=== PATIENT | male | born 1945 | race Caucasian/White ===

== ENCOUNTER 2017-04-14 20:12 | Emergency (ER) | payer MEDICARE ==
[2017-04-14] MEDS ORDERED: SODIUM CHLORIDE 0.9% 2,000 ML IV ONE (21:03)
[2017-04-14 21:20] LABS: Basophils % (A) 0 %; CH 31.4; CHCM 34.9; Eosinophils # (A) 0.1 k/uL (0-0.7); Eosinophils % (A) 0 %; HCT 38.5 % (39.0-53.0); HDW 2.34; Luc # (Auto) 0.15; Luc % (Auto) 1; Lymphocytes # (A) 1.3 k/uL (1.0-4.8); Lymphocytes % (A) 7 %; MCH 32.9 pg (25.0-35.0); MCHC 36.5 g/dL (31.0-37.0); MCV 90.2 fL (80.0-100.0); Mean Platelet Volume 7.7; Monocytes # (A) 0.7 k/uL (0-1.0); Monocytes % (A) 4 %; Neutrophils # (A) 15.6 k/uL (1.3-7.7); Neutrophils % (A) 88 %; RBC 4.27 m/uL (4.30-5.90); RDW 12.8 % (11.5-15.5); WBC 17.8 k/uL (3.8-10.6); WBC (Perox) 16.95
[2017-04-14 21:26] VITALS: RESP 20
[2017-04-14 21:27] LABS: Prothrombin Time 10.5 sec (9.0-12.0)
[2017-04-14 21:33] LABS: Anion Gap 9 mmol/L; Blood Urea Nitrogen 20 mg/dL (9-20); Calcium 9.1 mg/dL (8.4-10.2); Carbon Dioxide 27 mmol/L (22-30); Chloride 105 mmol/L (98-107); Creatine Kinase 102 U/L (55-170); Glucose 107 mg/dL (74-99); Non-African American GFR(MDRD) >60 (>60 ml/min/1.73 sqM); Sodium 141 mmol/L (137-145)
--- NOTE | 2017-04-14 21:41 | ED ---
Wound/Laceration HPI - General Chief Complaint: Wound/Laceration Stated Complaint: Leg Injury Time Seen by Provider: 04/14/17 20:47 Source: patient Mode of arrival: EMS Limitations: physical limitation - History of Present Illness Initial Comments: Patient is 71-year-old male who presents with a chief complaint of a laceration of the left lower extremity. Patient was unloading a tractor off of a truck bed , when the ramp slipped causing the patient and the tractor to fall. Patient fell on his left side and had his left leg trapped underneath the tractor for 45 minutes. Patient sustained a deep laceration to the left lower extremity on the anterior medial aspect. Laceration with is about 2 cm wide in linear, currently depth is unknown. Currently the patient is complaining of a sharp pain that he says is not very intense. Patient is declining pain medications at this time. Patient did not attempt to walk on it. He has not ambulated since the accident. Onset/Timin -: hour(s) Extremity Location: Left: Lower Leg Place: outdoors Context: accidental Associated Symptoms: pain Treatments Prior to Arrival: other (Tourniquet) - Related Data Home Medications Medication Instructions Recorded Confirmed Cyanocobalamin (Vitamin B-12) 1,000 mcg PO DAILY 04/14/17 04/14/17 [Vitamin B-12] L.acidoph,Paracasei, B.lactis 1 cap PO DAILY 04/14/17 04/14/17 [Probiotic] [place]-3 Fatty Acids/Fish Oil [Fish 1 cap PO DAILY 04/14/17 04/14/17 Oil 1,000 mg Softgel] Allergies Allergy/AdvReac Type Severity Reaction Status Date / Time No Known Allergies Allergy Verified 04/14/17 20:27 Review of Systems ROS Statement: Those systems with pertinent positive or pertinent negative responses have been documented in the HPI. Patient denies dizziness, lightheadedness, visual changes, loss of consciousness , chest pain, shortness of breath, nausea, vomiting, abdominal pain, loss of bladder or bowel function, dysuria, constipation, diarrhea ROS Other: All systems not noted in ROS Statement are negative. Past Medical History Past Medical History: No Reported History Past Surgical History: Appendectomy, Hernia Repair Additional Past Surgical History / Comment(s): half of right foot removed. Past Psychological History: No Psychological Hx Reported Smoking Status: Never smoker Past Alcohol Use History: None Reported Past Drug Use History: None Reported General Exam Limitations: physical limitation General appearance: alert, in no apparent distress Head exam: Present: atraumatic, normocephalic Eye exam: Present: normal appearance ENT exam: Present: mucous membranes moist Neck exam: Present: normal inspection Respiratory exam: Present: normal lung sounds bilaterally Cardiovascular Exam: Present: regular rate, normal rhythm GI/Abdominal exam: Present: soft Rectal exam: Present: deferred Extremities exam: Present: calf tenderness, other (Patient has gross deformity of the left lower extremity, there is fullness to the left calf. Patient has a laceration to the anterior medial aspect of the left lower extremity, length is 1 cm, the laceration is linear. Depth at this point is unknown secondary to poorly controlled bleeding. Bleeding appears to be venous. Patient has adequate pulses including DP, PT, popliteal, and femoral.) Back exam: Present: normal inspection Neurological exam: Present: alert, oriented X3 Psychiatric exam: Present: normal affect, normal mood Skin exam: Present: warm, dry, intact, other (Except for examination of left lower extremity, as described above) Course Vital Signs 04/14/17 04/14/17 04/14/17 20:13 21:00 21:15 Temperature 99.2 F Pulse Rate 64 65 69 Respiratory 16 20 20 Rate Blood Pressure 177/98 162/85 162/94 O2 Sat by Pulse 99 97 96 Oximetry 04/14/17 04/14/17 21:27 22:24 Temperature 99.0 F Pulse Rate 69 75 Respiratory 20 20 Rate Blood Pressure 166/59 165/86 O2 Sat by Pulse 99 96 Oximetry Medical Decision Making - Medical Decision Making Patient is 71-year-old male who presents with chief complaint of a laceration to the left lower leg on the anterior medial aspect. Patient was sitting on a tractor when it fell off a truck bed and crushed his left leg. Patient was trapped for 45 minutes. On arrival, bleeding was brisk but appears venous. Patient has palpable dorsalis pedis, posterior tibial, popliteal, and femoral pulses on the left lower extremity. Cap refill is adequate. I spoke with Dr. Moore with vascular surgery who appeared to the ER to examine the patient. The patient will go for x-rays of the left lower extremity to rule out fractures , however the patient will be admitted to observation to monitor his leg. Patient presented, and remains stable in the emergency department. He is in no acute distress. Patient was offered pain medication but declines at this time. Patient will be given 1 g of Ancef in the emergency department for prophylaxis. Patient has 2 IVs, with 2 L of normal saline infusing. 9:54 PM Patient returned from x-ray. 2 views of the femur did not show any acute abnormality. 2 views of the tibia and fibula show a crushed proximal tibia and several fragments, what appears to be extension into the joint space. When patient returned from x-ray, he had bled through the pressure dressing was applied to his leg. Patient had tourniquet placed on his leg once more with re- bandaging. We'll attempt to get hemostasis again. Lab evaluation of this patient shows a hemoglobin at 14. Patient's vital signs remained stable, do not suspect significant hemorrhage at this time, compartments of the lower extremity remains soft. Pulses remained palpable. Other lab evaluation shows a CK within normal limits, electrolyte are within normal limits well. 9:58 PM Case was discussed with Dr. Rosario who is recommending transfer to the [facility] for further orthopedic management. Patient's family states that they wish to be transferred to [facility]. Transfer was arranged, I spoke with Dr. Emilee Gaviria who accepts transfer of this patient to the ER CAT 1 for evaluation by oral trauma. Lactic acid resulted at 2.1, mildly elevated likely secondary to crush injury. Patient had a splint applied over the pressure dressing, and is stable for transfer at this time. Risk and benefits of transfer were explained to the patient, patient is agreeable to transfer. Currently awaiting EMS. 11 PM EMSs in the emergency department currently, patient remained stable. He was transferred to [facility] in stable condition. - Lab Data Result diagrams: 04/14/17 21:10 04/14/17 21:10 Lab Results 04/14/17 04/14/17 04/14/17 Range/Units 21:10 21:10 21:10 WBC 17.8 H (3.8-10.6) k/uL RBC 4.27 L (4.30-5.90) m/uL Hgb 14.0 (13.0-17.5) gm/dL Hct 38.5 L (39.0-53.0) % MCV 90.2 (80.0-100.0) fL MCH 32.9 (25.0-35.0) pg MCHC 36.5 (31.0-37.0) g/dL RDW 12.8 (11.5-15.5) % Plt Count 284 (150-450) k/uL Neutrophils % 88 % Lymphocytes % 7 % Monocytes % 4 % Eosinophils % 0 % Basophils % 0 % Neutrophils # 15.6 H (1.3-7.7) k/uL Lymphocytes # 1.3 (1.0-4.8) k/uL Monocytes # 0.7 (0-1.0) k/uL Eosinophils # 0.1 (0-0.7) k/uL Basophils # 0.0 (0-0.2) k/uL PT 10.5 (9.0-12.0) sec INR 1.0 (<1.1) Sodium 141 (137-145) mmol/L Potassium 4.0 (3.5-5.1) mmol/L Chloride 105 (98-107) mmol/L Carbon Dioxide 27 (22-30) mmol/L Anion Gap 9 mmol/L BUN 20 (9-20) mg/dL Creatinine 1.04 (0.66-1.25) mg/dL Est GFR (MDRD) Af Amer >60 (>60 ml/min/1.73 sqM) Est GFR (MDRD) Non-Af >60 (>60 ml/min/1.73 sqM) Glucose 107 H (74-99) mg/dL Plasma Lactic Acid Jackson (0.7-2.0) mmol/L Calcium 9.1 (8.4-10.2) mg/dL Creatine Kinase 102 (55-170) U/L 04/14/17 Range/Units 21:15 WBC (3.8-10.6) k/uL RBC (4.30-5.90) m/uL Hgb (13.0-17.5) gm/dL Hct (39.0-53.0) % MCV (80.0-100.0) fL MCH (25.0-35.0) pg MCHC (31.0-37.0) g/dL RDW (11.5-15.5) % Plt Count (150-450) k/uL Neutrophils % % Lymphocytes % % Monocytes % % Eosinophils % % Basophils % % Neutrophils # (1.3-7.7) k/uL Lymphocytes # (1.0-4.8) k/uL Monocytes # (0-1.0) k/uL Eosinophils # (0-0.7) k/uL Basophils # (0-0.2) k/uL PT (9.0-12.0) sec INR (<1.1) Sodium (137-145) mmol/L Potassium (3.5-5.1) mmol/L Chloride (98-107) mmol/L Carbon Dioxide (22-30) mmol/L Anion Gap mmol/L BUN (9-20) mg/dL Creatinine (0.66-1.25) mg/dL Est GFR (MDRD) Af Amer (>60 ml/min/1.73 sqM) Est GFR (MDRD) Non-Af (>60 ml/min/1.73 sqM) Glucose (74-99) mg/dL Plasma Lactic Acid Jackson 2.1 H* (0.7-2.0) mmol/L Calcium (8.4-10.2) mg/dL Creatine Kinase (55-170) U/L Disposition Clinical Impression: Open tibial fracture, Crush injury lower leg Disposition: OTHER INSTITUTION NOT DEFINED Condition: Good Referrals: None,Stated [Primary Care Provider] - 1-2 days - Out of Hospital Transfer - Req. Specs Out of Hospital Transfer - Requested Specifics: Other Emergency Center
--- NOTE | 2017-04-14 21:58 | XR ---
Left leg HISTORY: Trauma and pain 2 views of the left leg and 4 images There is a mid diaphyseal left tibial fracture which is comminuted and mildly displaced and angulated . Fracture is stellate in appearance and extends to the proximal metaphysis of the left tibia. IMPRESSION: Comminuted tibial fracture.
--- NOTE | 2017-04-14 22:14 | XR ---
Left femur HISTORY: Trauma and pain 2 views of the left femur on 4 images Bone mineralization is reduced. Arthropathy noted in the knee. Alignment is maintained. IMPRESSION: No fracture or dislocation.
[2017-04-14] MEDS ORDERED: ceFAZolin 1,000 MG in DEXTROSE/WATER 1 50ML.BAG IVPB STA (22:27)
[2017-04-14 23:15] VITALS: BP 170/86; PULSE 76; TEMP 99.3
--- NOTE | 2017-04-15 13:33 | CONS ---
Date of Consultation: 04/14/2017 This is a 71-year-old gentleman who came to the ER with history of a tractor fell on his left lower leg. He was brought to the emergency room. He has a puncture wound treated in his left lower leg with some swelling and some bleeding. Patient had a tourniquet on. Tourniquet was released but there was still minimal bleeding with calf tenderness. MEDICAL HISTORY: No history of diabetes, hypertensin, coronary artery disease. On examination, neck supple, trachea central. Chest clear to auscultation. First and second heart sounds are normal. Abdomen is soft. Vascular examination , femorals are palpable bilateral, posterior ( ) were palpable bilateral. Patient has a traumatic ( ) of the right foot due to the ( ). Patient had x-ray of the leg. There is a comminuted fracture of the tibia. PLAN: Ortho will be consulted. At this point, patient is stable from a vascular point of view. We have to monitor for compartment syndrome. We will discuss with Ortho and if he has got admit, we will follow. Otherwise, patient will be transferred to tertiary center. It depends on the ortho recommendation. JOSE
== END 2017-04-14 23:10 | disposition other institution (70) ==
LOC: EC 20:12
DX: S82.202B Unspecified fracture of shaft of left tibia, initial encounter for open fracture type I or II (principal); S87.82XA Crushing injury of left lower leg, initial encounter; S81.812A Laceration without foreign body, left lower leg, initial encounter; Z79.899 Other long term (current) drug therapy; V58.9XXA Unspecified occupant of pick-up truck or van injured in noncollision transport accident in traffic accident, initial encounter; Y93.89 Activity, other specified
CPT/HCPCS: 99285; 96365; 96361; 36415; 80048; 82550; 83605; 85025; 85610; 87040; 73552; 73590; J0690